=== PATIENT | female | born 1990 | race Caucasian/White ===

== ENCOUNTER → 2022-06-17 | Outpatient (CLI) | payer OTHER ==
[~2022-06-17] MED LIST: CLARITIN10 MG PO; KLONOPIN0.5 MG PO; MOTRIN800 MG PO; PAXIL30 M2 PO; PRILOSEC20 M1 PO; ZANTAC 7575 M1 PO; ZITHROMAX Z PA250 MG PO
== END | disposition home or self-care (01) ==
LOC: US 10:19
PROVIDERS: ATTEND Nurse Practitioner Family
DX: R10.11 Right upper quadrant pain (principal)

== ENCOUNTER → 2022-09-02 | Day surgery (SDC) | payer OTHER ==
[~2022-09-02] VITALS: Ht 170.1 cm; Wt 65.8 kg
[~2022-09-02] MED LIST changes: +CARAFATE1 G1 PO; +PROTONIX IV40 MG IV
[2022-09-02 07:21] VITALS: BP 128/72
[2022-09-02 08:04] VITALS: BP 99/60
[2022-09-02 08:15] VITALS: BP 113/68
[2022-09-02 08:34] VITALS: BP 132/65
== END ==
LOC: SDC 08-16 10:15
PROVIDERS: ATTEND Surgery
DX: R19.7 Diarrhea, unspecified (principal); K63.5 Polyp of colon; K29.50 Unspecified chronic gastritis without bleeding; R10.13 Epigastric pain; K58.0 Irritable bowel syndrome with diarrhea; I10 Essential (primary) hypertension; E78.00 Pure hypercholesterolemia, unspecified; F41.9 Anxiety disorder, unspecified; F43.10 Post-traumatic stress disorder, unspecified; F11.20 Opioid dependence, uncomplicated; F13.20 Sedative, hypnotic or anxiolytic dependence, uncomplicated; F17.210 Nicotine dependence, cigarettes, uncomplicated; Z79.899 Other long term (current) drug therapy; Z98.891 History of uterine scar from previous surgery; Z98.890 Other specified postprocedural states